=== PATIENT | female | born 1990 | race Two or more races ===

== ENCOUNTER 2024-11-09 08:39 | Emergency (ER) | payer MEDICAID, SELFPAY ==
--- NOTE | 2024-11-09 08:57 | PD.EDURI ---
Upper Respiratory Inf. RME/HPI General Chief Complaint: Flu Like Symptoms Stated Complaint: COUGH WITH PHLEGM CHEST TIGHTNESS; 10 WKS PREG Time Seen by Provider: 11/09/24 08:45 Arrival date/time: 11/09/24 08:39 RME / HPI RME / HPI Narrative: This section includes all my notes and documentations, including HPI, PE, and ED course.? Gustavo Simon MD HPI: 34 year old female presents to the ED for evaluation of a productive cough, phlegm green in color, beginning 4 days ago and worsening in the last day. Patient additionally reports she is currently 10 weeks gestational age and has had intermittent mild lower abdominal cramping for 2 days. No vaginal bleeding. Denies fevers, chills, sweats, chest pain, shortness of breath, vomiting, diarrhea, or urinary symptoms. No other complaints reported. ROS: All negative except as documented in HPI. Physical Exam: General:? Alert and oriented.? No acute distress when remaining still.?? Eyes:? Conjunctivae and lids clear.? ENT:? No nasal congestion.??Pharynx normal. TM normal bilaterally. Neck:? Supple.? Heart:? RRR.? Lungs:? No respiratory distress.? Good air movement.? No rhonchi, wheezing, rales.?? Abdomen:? Soft and nontender.?? Legs:? No clubbing, cyanosis, edema.? Skin:? Warm and dry.?? Neuro:? Alert and oriented X 3.?? I reviewed all diagnostic test results. COVID/FLU/RSV are all negative. At this point, diagnoses include?upper respiratory infection. Treatment here included?Benadryl and Tylenol and ipratropium neb treatment. Significant improvement noted. Recommended supportive care. Based on my best medical judgment, made decision no further evaluation or treatment indicated at this time.? Patient understands and agrees to the discharge instructions customized and printed, see below. Discharge Instructions from Dr. Simon: 1. The tests today for COVID and influenza and RSV were negative.? 2. We don't have a way to test for all the bugs out there.? But most are virus bugs and we don't have good medications to kill them.? But your immune system will fight off the infection. 3. Tylenol for fever or pain. 4. Benadryl as needed for cough or congestion. Ipratropium inhaler as needed for cough or shortness of breath. 5. Increase oral fluid.? The immune system needs extra when sick. 6. See a private doctor next week if not better. 7. Seek immediate medical care with worsening or with any concerns. Instrucciones de alexander del Dr. Simon: 1. Las pruebas de hoy para COVID, influenza y VSR fueron negativas. 2. No tenemos santi manera de hacer pruebas para todos los g?rmenes que existen. Александр la mayor?a son g?rmenes virales y no tenemos buenos medicamentos para matarlos. Александр coleman sistema inmunol?gico combatir? la infecci?n. 3. Tylenol para la fiebre o el dolor. 4. Benadryl seg?n sea necesario para la tos o la congesti?n. Inhalador de ipratropio seg?n sea necesario para la tos o la falta de aliento. 5. Aumente el l?quido oral. El sistema inmunol?gico necesita m?s cuando est? enfermo. 6. Consulte a un m?dico privado la pr?xima semana si no mejora. 7. Busque atenci?n m?dica inmediata si empeora o si tiene alguna inquietud. Gustavo Simon MD Related Data Previous Rx's ?Medication ?Instructions ?Recorded ipratropium bromide 17 2 puff inhalation QID PRN 11/09/24 mcg/actuation HFA aerosol inhaler shortness of breath or wheezing #12.9 grams Allergies Allergy/AdvReac Type Severity Reaction Status Date / Time ketorolac Allergy Intermediate Rash Verified 11/09/24 08:44 Review of Systems Review of Systems Systems Reviewed: All systems reviewed, normal except as documented Past Medical History Social History SMOKING STATUS: Never smoker ED Exam Narrative Physical exam: As noted in HPI Course Quality Measures none Orders Category Date Time Status Bedside COVID-19 Antigen Test NOW Care 11/09/24 08:57 Active Bedside Influenza A&B Antigen Test NOW Care 11/09/24 08:57 Completed RSV [Respiratory Syncytial Virus Ag] Stat Lab 11/09/24 09:04 Completed Acetaminophen Tab [Tylenol Tab] Med 11/09/24 10:09 Discontinued 650 mg PO X1 ONE DiphenhydrAMINE [Benadryl] Med 11/09/24 09:02 Discontinued 12.5 mg PO X1 ONE Ipratropium [place] Rt Angela [Atrovent Rt Angela] Med 11/09/24 09:02 Discontinued 0.5 mg INH X1 ONE Vital Signs Vital signs: Vital Signs Temperature 97.9 F 11/09/24 09:06 Pulse Rate 94 11/09/24 09:06 Respiratory Rate 18 11/09/24 09:06 Blood Pressure 107/72 11/09/24 09:06 Pulse Oximetry (%) 98 11/09/24 09:06 Oxygen Delivery Method Room Air 11/09/24 09:06 Pulse ox is 98% on room air which is adequate. Upper Respiratory Infection MDM Narrative MDM Narrative:: Carol Angela am scribing for and in the presence of Dr. Simon. Patient data External records reviewed:: [facility] previous records (Per EMR, no previous visits for review) Clinical information provided by:: patient Social determinants that could affect healthcare access:: none Patient has the following chronic illnesses:: No chronic medical hx reported How is presenting disease/condition affected by chronic disease/condition?: no chronic disease Evaluation data The following diagnostics were reviewed and interpreted by me:: lab results Lab and/or radiology exams considered but not ordered:: None Interpretation Summary: covid/flu/rsv negative. Medications / Prescriptions Medications or Prescriptions considered but not ordered:: None Medication administrations:: Medication Administration History Discontinued Medications Acetaminophen (Acetaminophen 325 Mg Tablet) 650 mg PO X1 ONE Stop: 11/09/24 10:10 Diphenhydramine HCl (Diphenhydramine Elix 25 Mg/10 Ml Udc) 12.5 mg PO X1 ONE Stop: 11/09/24 09:03 Last Admin: 11/09/24 10:05 Dose: 12.5 mg Documented By: DO Ipratropium [place] (Ipratropium Rt 0.5 Mg/ 2.5 Ml Nebu) 0.5 mg INH X1 ONE Stop: 11/09/24 09:03 Last Admin: 11/09/24 09:45 Dose: 0.5 mg Documented By: LO Patient given Tylenol and Benadryl and ipratropium neb treatment Consultations Consultation(s) initiated? (list below): No Diagnosis Upper Respiratory Differential Diagnosis: upper respiratory infection, otitis media, sinusitis, viral infection, bronchitis, influenza and other (COVID/RSV) Most likely diagnosis given after review of the tests above:: URI Admission Indicated Admission indicated?: not indicated Explain why admission is indicated or not indicated:: Admission criteria not met Admission Request Was there a request for admission?: No Disposition Plan Disposition Plan: Discharge Discharge Attestation Discharge Attestation: The patient and all family members were given an opportunity to ask questions and understood the discharge instructions. Discharge instructions specifically effects, indications for sooner follow up or return to the emergency department, and the expected course of current diagnosis. Patient condition: Stable Discharge Plan Plan Patient Disposition: HOME (Self Care) Prescriptions/Referrals Prescriptions/Med Rec: New ipratropium bromide 17 mcg/actuation HFA aerosol inhaler 2 puff inhalation QID PRN (Reason: shortness of breath or wheezing) Qty: 12.9 0RF Problem List Clinical Impression: Upper respiratory infection Patient/Caregiver Discharge Instructions Discharge Activity: activity as tolerated Education Materials: ED URI, Viral, No Abx (Adult) Additional Instructions: Discharge Instructions from Dr. Simon: 1. The tests today for COVID and influenza and RSV were negative.? 2. We don't have a way to test for all the bugs out there.? But most are virus bugs and we don't have good medications to kill them.? But your immune system will fight off the infection. 3. Tylenol for fever or pain. 4. Benadryl as needed for cough or congestion. Ipratropium inhaler as needed for cough or shortness of breath. 5. Increase oral fluid.? The immune system needs extra when sick. 6. See a private doctor next week if not better. 7. Seek immediate medical care with worsening or with any concerns. Instrucciones de alexander del Dr. Simon: 1. Las pruebas de hoy para COVID, influenza y VSR fueron negativas. 2. No tenemos santi manera de hacer pruebas para todos los g?rmenes que existen. Александр la mayor?a son g?rmenes virales y no tenemos buenos medicamentos para matarlos. Александр coleman sistema inmunol?gico combatir? la infecci?n. 3. Tylenol para la fiebre o el dolor. 4. Benadryl seg?n sea necesario para la tos o la congesti?n. Inhalador de ipratropio seg?n sea necesario para la tos o la falta de aliento. 5. Aumente el l?quido oral. El sistema inmunol?gico necesita m?s cuando est? enfermo. 6. Consulte a un m?dico privado la pr?xima semana si no mejora. 7. Busque atenci?n m?dica inmediata si empeora o si tiene alguna inquietud. Print Language: Yoruba Stand Alone Forms: Lupis Award Info., Patient Portal Info Letter
[2024-11-09 09:06] VITALS: BP 107/72; PULSE 94; RESP 18; TEMP 36.6; O2SAT 98; BMI 26.7
[2024-11-09 09:43] LABS: Respiratory Syncytial Virus Ag Negative (Negative)
[2024-11-09] MEDS: IPRATROPIUM RT 0.5 MG/ 2.5 ML NEBU INH (09:45)
[2024-11-09 09:46] VITALS: PULSE 84; RESP 18; O2SAT 100
[2024-11-09] MEDS: DiphenhydrAMINE ELIX 25 MG/10 ML UDC 12.5 MG PO (10:05)
[2024-11-09] MEDS: ACETAMINOPHEN 325 MG TABLET 650 MG PO (10:17)
== END 2024-11-09 10:19 | disposition home or self-care (01) ==
PROVIDERS: Emergency Provider Emergency Medicine
DX: J06.9 Acute upper respiratory infection, unspecified (principal)
CPT/HCPCS: 87400; 87634; 87811; 94640; 99283; A9270